=== PATIENT | female | born 1980 | race Caucasian/White ===

== ENCOUNTER 2017-09-21 11:59 | Emergency (ER) | payer BC ==
[~2017-09-21] VITALS: Ht 149.9 cm; Wt 67.7 kg
[~2017-09-21 11:59] MED LIST: DOCU100C40 PO; PER5325T PO
[2017-09-21 12:01] VITALS: BP 146/100
[2017-09-21] MEDS ORDERED: ipratropium/albuterol 3ml nebule NEB ONE (12:30)
[2017-09-21] MEDS ORDERED: ALBU8.5H8 IH (13:28)
[2017-09-21] MEDS ORDERED: AFRIN NS (13:28)
[2017-09-21] MEDS ORDERED: GUAI120015 PO (13:28)
== END 2017-09-21 13:38 | disposition home or self-care (01) ==
LOC: ER 12:00
DX: J06.9 Acute upper respiratory infection, unspecified (principal); Z88.0 Allergy status to penicillin; Z79.899 Other long term (current) drug therapy
CPT/HCPCS: 71045; 93005; 94640; 94760; 99284

== ENCOUNTER 2024-10-09 15:56 | Emergency (ER) | payer BC, OTHER ==
[~2024-10-09] VITALS: Ht 154.9 cm; Wt 59.1 kg
[~2024-10-09 15:56] MED LIST changes: +ALBU8.5H17 IH; +GUAI120015 PO
[2024-10-09 16:52] LABS: BASOPHILS # (AUTO) 0.1 X10'3 (0-0.2); BASOPHILS % (AUTO) 0.9 % (0-1); EOSINOPHILS # (AUTO) 0.1 X10'3 (0-0.9); EOSINOPHILS % (AUTO) 1.3 % (0-6); HEMATOCRIT 42.1 % (35.0-45.0); HEMOGLOBIN 14.6 g/dl (12.0-16.0); LYMPHOCYTES # (AUTO) 1.7 X10'3 (1.1-4.8); LYMPHOCYTES % (AUTO) 24.1 % (21-51); MEAN CORPUSCULAR HEMOGLOBIN 31.7 PG (27.0-31.0); MEAN CORPUSCULAR HGB CONC 34.7 g/dL (33.0-36.5); MEAN CORPUSCULAR VOLUME 91.5 FL (78-98); MEAN PLATELET VOLUME 7.1 FL (7.4-10.4); MONOCYTES # (AUTO) 0.6 X10'3 (0-0.9); MONOCYTES % (AUTO) 8.6 % (2-12); NEUTROPHILS # (AUTO) 4.7 X10'3 (1.8-7.7); NEUTROPHILS % (AUTO) 65.1 % (42-75); PLATELET COUNT 329 X10'3 (140-440); RED BLOOD COUNT 4.61 X10'6 (4.20-5.60); RED CELL DISTRIBUTION WIDTH 12.7 % (11.5-14.5); WHITE BLOOD COUNT 7.2 X10'3 (4.5-11.0)
[2024-10-09 17:10] LABS: ALANINE AMINOTRANSFERASE 22 U/L (12-78); ALBUMIN 4.2 G/DL (3.4-5.0); ALBUMIN/GLOBULIN RATIO 1.1 (1.1-1.5); ALKALINE PHOSPHATASE 57 IU/L (46-116); ANION GAP 6 (8-16); ASPARTATE AMINO TRANSFERASE 9 U/L (10-37); BILIRUBIN,TOTAL 0.5 MG/DL (0.1-1.0); BLOOD UREA NITROGEN 11 MG/DL (7-18); BUN/CREATININE RATIO 17.5 (10.0-20.0); CALCIUM 8.9 MG/DL (8.5-10.1); CHLORIDE 103 MMOL/L (99-107); CREATININE 0.63 MG/DL (0.40-0.90); GLUCOSE 93 MG/DL (70-104); POTASSIUM 3.8 MMOL/L (3.5-5.1); SODIUM 139 MMOL/L (135-145); TOTAL CARBON DIOXIDE 29.6 MMOL/L (24-32); TOTAL PROTEIN 7.9 G/DL (6.4-8.2); eCRCL 86 ML/MIN; eGFR > 90 ML/MIN
[2024-10-09 17:15] LABS: LIPASE 66 U/L (16-77)
[2024-10-09 17:33] LABS: BETA HCG,QUANTITATIVE < 1.0 mIU/ml
[2024-10-09 21:59] VITALS: TEMP 96.6
[2024-10-09 22:34] LABS: BILIRUBIN,URINE NEGATIVE (Neg); CLARITY,URINE CLEAR (Clear); COLOR,URINE YELLOW (Yellow); GLUCOSE, URINE NEGATIVE (Neg); KETONES,URINE NEGATIVE (Neg); LEUKOCYTE ESTERASE ,URINE NEGATIVE (Neg); NITRITES, URINE NEGATIVE (Neg); OCCULT BLOOD,URINE NEGATIVE (Neg); PH,URINE 6.5 (4.8-8.0); PROTEIN,URINE NEGATIVE (Neg); UROBILINOGEN,URINE 0.2 E.U/dL (0.2-1.0)
[2024-10-09 22:39] LABS: UA COLLECTION TYPE CLN CATCH MIDSTREAM
[2024-10-09 23:36] VITALS: BP 144/83; PULSE 61; RESP 16; O2SAT 99
== END 2024-10-09 23:54 | disposition home or self-care (01) ==
LOC: ER 15:56
DX: R10.12 Left upper quadrant pain (principal); Z88.0 Allergy status to penicillin; Z79.899 Other long term (current) drug therapy
CPT/HCPCS: 36415; 76700; 80053; 81003; 83690; 84702; 85025; 99284